=== PATIENT | female | born 1950 | race Caucasian/White ===

== ENCOUNTER 2016-10-17 10:19 | Emergency (ER) | payer OTHER, MEDICAID ==
[~2016-10-17] VITALS: Ht 160 cm; Wt 73.0 kg
[~2016-10-17 10:19] MED LIST: ALLO300T PO; ALPR-475 PO; ATOR80TA PO; CITA40TA12 PO; CLON-364 PO; GLYB5TAB3 PO; HYDR-3144 PO; HYDR-3241 PO; HYDR1TAB12 PO; LISI1TAB3 PO; LISI2.5T PO; TIZA4CAP PO
[2016-10-17] MEDS ORDERED: SODIUM CHLORIDE 0.9% 1,000 ML IV ONE (10:36)
[2016-10-17] MEDS ORDERED: ASPIRIN 81 MG TABLET CHEW ONE (10:56)
[2016-10-17] MEDS ORDERED: SODIUM CHLORIDE FLUSH 10ML SYR IVF ONE (11:00)
[2016-10-17] MEDS ORDERED: ASPIRIN 81 MG TABLET CHEW PO ONE (11:00)
[2016-10-17 11:05] LABS: HEMATOCRIT 46.5 % (34.6-47.8); HEMOGLOBIN 15.6 g/dL (11.7-16.4); WHITE BLOOD COUNT 8.5 x10^3/uL (3.4-10)
[2016-10-17 11:17] LABS: BLOOD UREA NITROGEN 17 mg/dL (7-18)
[2016-10-17 11:23] LABS: IS PT STATUS REG ER OR PRE ER? YES
[2016-10-17 11:54] VITALS: BP 141/57
== END 2016-10-17 12:04 | disposition home or self-care (01) ==
LOC: ED 11:16
DX: R00.2 Palpitations (principal); E11.9 Type 2 diabetes mellitus without complications
CPT/HCPCS: 36415; 71020; 80048; 82040; 83735; 83880; 84436; 84443; 84484; 85025; 93005; 96360; 99285; J7030

== ENCOUNTER → 2017-12-01 | Outpatient (CLI) | payer OTHER, MEDICAID ==
[~2017-12-01] MED LIST changes: -CLON-364 PO; +CLON0.5T11 PO; -HYDR-3144 PO; +HYDR-3245 PO
== END | disposition home or self-care (01) ==
LOC: CFH 15:15
PROVIDERS: ATTEND Pain Medicine Pain Medicine
DX: M16.12 Unilateral primary osteoarthritis, left hip (principal)

== ENCOUNTER → 2018-01-04 | Outpatient (CLI) | payer OTHER, MEDICAID | END | disposition home or self-care (01) | LOC: CFH 09:07 | PROVIDERS: ATTEND Family Medicine | DX: S13.140A Subluxation of C3/C4 cervical vertebrae, initial encounter (principal); M50.323 Other cervical disc degeneration at C6-C7 level; M48.02 Spinal stenosis, cervical region; X58.XXXA Exposure to other specified factors, initial encounter; Y93.89 Activity, other specified; Y92.89 Other specified places as the place of occurrence of the external cause; Y99.8 Other external cause status | CPT/HCPCS: 72050 ==

== ENCOUNTER 2019-01-03 17:51 | Emergency (ER) | payer OTHER, MEDICAID ==
[~2019-01-03] VITALS: Ht 160 cm; Wt 78.7 kg
[~2019-01-03 17:51] MED LIST changes: -ALPR-475 PO; +ALPR0.5T7 PO; -HYDR1TAB12 PO; +HYDR1TAB13 PO; +LISI1TAB23 PO; -LISI1TAB3 PO
[2019-01-03 18:26] VITALS: BP 122/84
== END 2019-01-03 21:27 | disposition home or self-care (01) ==
LOC: ED 21:21
DX: S16.1XXA Strain of muscle, fascia and tendon at neck level, initial encounter (principal); S29.012A Strain of muscle and tendon of back wall of thorax, initial encounter; M51.34 Other intervertebral disc degeneration, thoracic region; M19.071 Primary osteoarthritis, right ankle and foot; I10 Essential (primary) hypertension; E11.9 Type 2 diabetes mellitus without complications; E78.5 Hyperlipidemia, unspecified; V49.49XA Driver injured in collision with other motor vehicles in traffic accident, initial encounter; Y93.89 Activity, other specified; Y92.89 Other specified places as the place of occurrence of the external cause; Y99.8 Other external cause status
CPT/HCPCS: 72072; 72125; 99284